=== PATIENT | female | born 1970 | race Caucasian/White ===

== ENCOUNTER 2017-04-30 15:36 | Emergency (ER) | payer BC ==
[2017-04-30 15:39] VITALS: BP 107/66
--- NOTE | 2017-04-30 17:03 | UC ---
Breast Complaint - HPI Summary HPI Summary: C/O LUMP IN LEFT BREAST THAT SHE NOTICED YESTERDAY. PT STATES LUMP IS PAINFUL. - History of Current Complaint Hx Obtained From: Patient Breast Chief Complaint: Pain, Left, Palpable Lump Onset/Duration: Started Hours Ago, Atraumatic, Still Present Timing: Constant - Allergy/Home Medications Allergies/Adverse Reactions: Allergies Allergy/AdvReac Type Severity Reaction Status Date / Time No Known Allergies Allergy Verified 04/30/17 15:38 Home Medications: Home Medications Sertraline HCl [Zoloft] 100 mg PO 04/30/17 [History] PMH/Surg Hx/FS Hx/Imm Hx Psychological History: Anxiety - Surgical History Surgical History: Yes Surgery Procedure, Year, and Place: [place] teeth extraction in [place] - Social History Alcohol Use: Occasionally Substance Use Type: None Smoking Status (MU): Former Smoker Physical Exam Vital Signs: Initial Vital Signs Temp 99.2 F 04/30/17 15:38 Pulse 63 04/30/17 15:38 Resp 16 04/30/17 15:38 BP 107/66 04/30/17 15:38 Pulse Ox 96 04/30/17 15:38
== END 2017-04-30 17:08 | disposition left against medical advice (07) ==
LOC: UCEAST 15:36
DX: N64.4 Mastodynia (principal); Z53.21 Procedure and treatment not carried out due to patient leaving prior to being seen by health care provider